=== PATIENT | female | born 1990 | race Caucasian/White ===

== ENCOUNTER 2023-08-15 09:02 | Observation (INO) | payer OTHER ==
[2023-08-15 09:29] LABS: Albumin 3.7 g/dL (3.4-5.0); Bilirubin Direct 0.1 mg/dL (0-0.2); Bilirubin Indirect, Calculated 0.4 mg/dL (0.2-0.8); Bilirubin Total 0.5 mg/dL (0.2-1.0); Protein, Total 7.7 g/dL (6.4-8.2)
[2023-08-15] MEDS ORDERED: Ringers Lactate 1,000 ML IV ONE ×2 (09:40→13:43)
[2023-08-15] MEDS ORDERED: propofoL 200 MG/20 ML VIAL IV ONE (11:33)
[2023-08-15] MEDS ORDERED: MIDAZOLAM HCL 2 MG/2 ML INJ ONE (11:33)
[2023-08-15] MEDS ORDERED: ROCURONIUM 50 MG/5 ML VIAL IV ONE (11:33)
[2023-08-15] MEDS ORDERED: FENTANYL CITR 100 MCG/2 ML ONE ×3 (11:33→12:19)
[2023-08-15] MEDS ORDERED: LIDOCAINE 2% MPF 5 ML VIAL ONE (11:34)
[2023-08-15] MEDS ORDERED: CEFOXITIN SODIUM 1 GM/VIAL ONE (11:43)
[2023-08-15] MEDS ORDERED: KETOROLAC 30 MG/ML INJ ONE (12:11)
[2023-08-15] MEDS ORDERED: NEOSTIGMINE 1 MG/ML -10 ML VIAL ONE (12:43)
[2023-08-15] MEDS ORDERED: GLYCOPYRROLATE 0.2 MG/ML SYR ONE (12:43)
[2023-08-15] MEDS: FENTANYL CITR 100 MCG/2 ML ONE ×4 (13:04→13:20)
[2023-08-15] MEDS ORDERED: SODIUM CHLORIDE 0.9% 10ML INJ IV PRN (13:13)
[2023-08-15] MEDS ORDERED: ONDANSETRON 4 MG/2 ML VIAL IV PRN (13:13)
[2023-08-15] MEDS ORDERED: ONDANSETRON 4 MG/2 ML VIAL ONE (13:14)
[2023-08-15] MEDS: HYDROMORPHONE HCL 1 MG/ML INJ IV PRN ×5 (13:26→22:19)
[2023-08-15] MEDS: PROMETHAZINE INJ 25 MG/ML AMP ONE ×2 (13:33→14:01)
[2023-08-15] MEDS ORDERED: HYDROMORPHONE HCL 1 MG/ML INJ ONE (13:34)
--- NOTE | 2023-08-15 13:41 | P.BOP ---
Preoperative diagnosis: acute cholecystitis, sympt cholethiasis, RUQ pain, transverse colon colitis Postoperative diagnosis: same, intrabd adhesions Primary procedure: Laparoscopic cholecystectomy, lap lysis of adhesions Coagulating Operator: FRANKY SHANKAR (CONSULTANT RN) Estimated blood loss: <20cc Specimen: gb Findings: severe GB thickening, acute cholecystitis, colitis, intrabdominal adhesion Anesthesia: General Complications: None Drain(s): JAMES drain Transferred to: Recovery Room Condition: Good
[2023-08-15 14:15] VITALS: O2SAT 94
[2023-08-15] MEDS: NA CHLORIDE 0.9% 1,000 ML IV SCH (15:24)
[2023-08-15 16:20] VITALS: BMI 31.1
[2023-08-15] MEDS: PIPER TAZO 3.375 GM in NA CHLORIDE 0.9% 100 ML IV SCH ×2 (17:22→17:24)
[2023-08-15] MEDS: HYDROCODONE/APAP 5/325 MG TAB PO PRN (19:33)
[2023-08-16] MEDS: HYDROCODONE/APAP 5/325 MG TAB PO PRN (03:28)
[2023-08-16] MEDS: NA CHLORIDE 0.9% 1,000 ML IV SCH ×3 (03:28→10:00)
[2023-08-16] MEDS: HYDROMORPHONE HCL 1 MG/ML INJ IV PRN (04:43)
[2023-08-16 06:25] LABS: Absolute Lymphocytes (CBC) 1.3 K/uL (0.7-4.9); Hematocrit 36.7 % (36.0-45.0); Lymphocytes % 10.4 % (15.3-44.8); MCV 88.2 fL (80-100); MPV 7.6 fL (7.6-11.3); Platelets 355 thou/uL (152-406); RBC Red Blood Cell Count 4.16 M/uL (3.86-4.86)
[2023-08-16] MEDS: PIPER TAZO 3.375 GM in NA CHLORIDE 0.9% 100 ML IV SCH (08:42)
[2023-08-16] MEDS ORDERED: PANTOPRAZOLE 40 MG INJ IVP SCH (09:00)
[2023-08-16 09:31] VITALS: BP 115/54; TEMP 97.7
--- NOTE | 2023-08-22 11:54 | OP ---
Date of Procedure: 08/22/2023 Surgeon: Darius Mayfield MD Tin Dipper: Jesusita Quiroga. Preoperative Diagnoses: Acute cholecystitis, symptomatic cholelithiasis, right upper quadrant abdomi nal pain, transverse colon colitis. Postoperative Diagnoses: Acute cholecystitis, symptomatic cholelithiasis, right upper quadrant abdom inal pain, transverse colon colitis, intra-abdominal adhesions. Procedures: Laparoscopic cholecystectomy, laparoscopic lysis of adhesions. Estimated Blood Loss: Less than 20 cc. Findings: Severe gallbladder thickening, acute cholecystitis, adjacent colitis with intra-abdominal adhesions. Anesthesia: General plus local. Drains: JAMES #10. Indication: This is the case of a lady, who comes to us with abdominal pain, seen in the ER at [facility], sent back home. She did not improve with change in diet, came back once again with a bdominal pain, getting worse so she was advised the importance of laparoscopic possible open cholecys tectomy with benefits, alternatives, and risks including, but not limited to infection, bleeding, dam age to adjacent structures, anesthesia complication, choledocholithiasis, bile leak, pancreatitis, [place] , and even . She also understands this may not relieve any symptoms. She might need more than one surgical intervention. She understood, signed a consent. During the imaging also, she was found to have transverse colitis, transverse colon inflammation which may or may not be related to this ga llbladder disease. I advised her as an outpatient when this is resolved to consider having a colonos copy to make sure from appearance colon may just a colonoscopy may also once again clarify the transverse colitis in this patient. Procedure In Detail: The patient was brought to the operating room, placed in supine position. Anes thesia was done without complication. Abdominal area was prepped and draped in the usual sterile fas hion. Local anesthesia was applied followed by sharp incision of the skin in the infraumbilical cathleen on. The incision was carried down to fascia, which was opened under direct vision. Peritoneum was e ncountered, opened under direct vision. Vicryl #1 placed inside the fascia. Carson trocar was caref ully introduced. Pneumoperitoneum was obtained. I placed 3 more trocars, 5 mm each one of them, 1 i n epigastric area and 2 in the right upper quadrant using same technique, which was consisted of loca l anesthetic, sharp incision of the skin, and introduction of the trocars under direct vision. This allowed me to put a grasper in the fundus of the gallbladder, another grasper in the infundibulum. B efore we do that, we noticed that there was no way to get to the gallbladder without going to those a dhesions once again. Apparently, this patient has colitis back on floor and this colon that is adjac ent to it is involved in this adhesions, may be just the side effects of this inflammation being in t he back. I have to use LigaSure to be able to do lysis of adhesions, to be able to address the issue of the gallbladder. So we under direct visualization performed lysis of adhesions. These adhesions not only go to the gallbladder anterior abdominal wall. Once we have those cleared, we w ere able to find the infundibulum and then put a grasper in the infundibulum, retracted the gallbladd er in the inferolateral fashion exposing the triangle of Calot. Once again, we have also another gra sper in the fundus of the gallbladder. At that moment, we were able to identify the cystic duct and cystic artery connection between those and the gallbladder were clearly identified. I pro ceeded to ligate those by using at least 3 clips proximal, 1 clip distal, ligation in the middle. Sa me was done with the cystic artery. No bile leak, no bleeding. The gallbladder was removed from the liver using Bovie cauterizer and removed from abdominal cavity using EndoCatch through the umbilical incision. The area was inspected once again. This gallbladder was very inflamed, but we were able to find the structures nicely. Clips were intact. The areas of lysis of adhesions showed no bleedin g. I still preferred to leave a JAMES drain in that area exiting to one of the trocar sites securing th at in place with 3-0 nylon. After fully inspected, then the trocar was removed under direct visualiz ation. Pneumoperitoneum was deflated and closed the fascia with #1 Vicryl and the skin with alejandro. Sponge count, instrument counts correct. The patient tolerated the procedure well. The patient wa s sent to recovery room in stable condition. The patient will remain in the hospital overnight since we expect the patient to may develop ileus and may require IV pain medication. AVA/FRANTZ Voice ID: [id number] Report ID: [id number]
== END 2023-08-16 11:00 | disposition home or self-care (01) ==
LOC: OR 09:02 → 4TH 13:15
PROVIDERS: ADMIT Surgery; ATTEND Surgery
PROC: 0FT44ZZ Resection of Gallbladder, Percutaneous Endoscopic Approach (ICD-10-PCS; principal; 2023-08-15 12:15)
DX: K80.12 Calculus of gallbladder with acute and chronic cholecystitis without obstruction (principal); R10.11 Right upper quadrant pain; K66.0 Peritoneal adhesions (postprocedural) (postinfection); K52.9 Noninfective gastroenteritis and colitis, unspecified
CPT/HCPCS: 47562; 85025; 80048; 36415; 84703; 80076; 88304; 83690; 97116; 97161; 94010; G0379; J2550; J2704; J2710; J2543 ×2; J2001; C9113; J2250; J3010 ×4; J1170 ×4; J0694; J2405; G0378 ×3; J7120 ×2; J7030 ×2